=== PATIENT | female | born 1990 | race Caucasian/White ===

== ENCOUNTER → 2024-07-29 15:00 | Outpatient (REF) | payer OTHER, SELFPAY | LOC: HWRAD 15:00 | PROVIDERS: ATTENDING PHYSICIAN Nurse Practitioner Family | DX: R22.1 Localized swelling, mass and lump, neck (principal) | CPT/HCPCS: 76536 ==

== ENCOUNTER 2025-06-14 19:41 | Emergency (ER) | payer OTHER, SELFPAY ==
[2025-06-14 19:42] VITALS: BP 172/111
--- NOTE | 2025-06-14 20:21 | ED.GENMED ---
History of Present Illness
General
Chief Complaint: Throat Problem
Source: patient
Exam Limitations: none
Time Seen by Provider: 06/14/25 19:57
Nursing documentation reviewed up to this point in time: agreed with
History of Present Illness
History of Present Illness:
Patient is a healthy 34-year-old female who presents to the emergency department for evaluation of throat pain. She states that she developed a sore throat on Monday, was seen in urgent care where her rapid strep test was positive. She was
started on a course of amoxicillin. However, after 2 days she reports no improvement in throat pain and was seen by her primary care provider yesterday who switched her to Keflex and started her on a Medrol Dosepak.
Patient describes significant pain in her right throat now with right ear pain, as well. She has also had mild, intermittent headaches. Pain worse with swallowing. She denies any fever or chills. No chest pain, shortness of breath, or productive
cough. No vomiting. No abdominal pain.
Of note�patient's son was diagnosed with impetigo on Monday.
Review of Systems
Review of Systems
Allergies reviewed?: Yes
All Other Systems: ROS reviewed and negative except as documented in HPI and ROS
Phy Exam
Physical Exam
Physical Exam:
Vitals: Hypertensive, otherwise vital signs stable. Afebrile
General: Patient is mildly uncomfortable appearing, however nontoxic
Skin: Warm and dry, no rashes or lesions
Head: Normocephalic, atraumatic
Eyes: Sclera nonicteric.
Throat: Erythematous posterior pharynx with 1+ tonsillar edema and exudates greater on left side. Uvula midline. Clear speech. No trismus. Protecting airway
Neck: Normal ROM, no cervical spine tenderness, no meningismus. Palpable and tender cervical lymphadenopathy
Cardiac: Regular rate and rhythm, no murmurs.
Pulm: Normal respiratory effort. Lungs clear bilaterally
Abdomen: Abdomen soft and nontender.
Extremities: No evidence of cyanosis or edema
Neuro: AAOx3. Grossly intact.
Psychiatric: Normal affect.
Course
Orders/Labs/Results
Orders:
Orders
06/14/25 20:17
0.9% Sodium Chloride 1000 ml [Nss] 1,000 ml IV BOLUS
Dexamethasone Sod Phosphate [Decadron] 10 mg IV NOW STA
Ketorolac [Toradol] 15 mg IV NOW STA
06/14/25 20:18
Test Result ONCE
06/14/25 20:45
COVID-19 Antigen Urgent
Source: Nasal Swab
Complete Blood Count/With Diff Urgent
Comprehensive Metabolic Panel Urgent
HCG, Serum Qualitative Screen Urgent
Monotest Urgent
Influenza A+B Rapid Molecular Urgent
LESLEE Source: Nasal Swab
Specimen Description:
Rapid Strep Group A Urgent
LESLEE Source: Throat/Pharynx
Specimen Description:
Date Specimen was Collected: 06/14/25
Time Specimen was Collected: 20:28
Throat Culture [Throat Culture, Comprehensive] Urgent
LESLEE Source: Tonsil
Specimen Description:
Date Specimen was Collected: 06/14/25
Time Specimen was Collected: 20:28
06/14/25 21:27
Acetaminophen [Tylenol] 1,000 mg PO NOW STA
Abnormal Lab Results
06/14/25
20:45
WBC 16.1 H 10^3/uL
(4.8-10.8)
Abs Immat Gran (auto) 0.1 H 10^3/uL
(0-0.05)
Absolute Neuts (auto) 12.6 H 10^3/uL
(1.4-6.5)
Absolute Monos (auto) 1.2 H 10^3/uL
(0.1-0.6)
Neutrophils % 78.5 H %
(42.2-75.2)
Lymphocytes % 12.9 L %
(20.5-51.1)
Monoscreen Positive A
(Negative)
06/14/25 20:45
06/14/25 20:45
Vital Signs
Initial and Last Documented VS:
Initial Vital Signs
Temp Pulse Resp BP Pulse Ox
98.7 F 89 16 172/111 98
06/14/25 19:42 06/14/25 19:42 06/14/25 19:42 06/14/25 19:42 06/14/25 19:42
Last Documented Vital Signs
Temp Pulse Resp BP Pulse Ox
97.5 F 70 16 128/91 98
06/14/25 21:59 06/14/25 21:59 06/14/25 21:59 06/14/25 21:59 06/14/25 21:59
MDM/Problems Addressed
Differential Diagnosis Includes:
Not limited to: Strep pharyngitis, viral pharyngitis including COVID, influenza, mono, etc., peritonsillar abscess, otitis media, GERD, etc.
MDM/Problems Addressed:
34-year-old female with 3�4 days of sore throat and intermittent headaches. Apparently positive rapid strep test, however not responding to a few days of antibiotics.
Vitals stable. On exam, patient appears slightly uncomfortable when swallowing however non-toxic appearing. Abdomen benign. Cardio/pulmonary assessment unremarkable. Patient with tonsillar erythema and exudates on exam however no asymmetry or
evidence of ORDER DESK CLERK. Uvula midline with clear speech. No trismus.
Differential includes viral illness, bacterial pharyngitis, tonsiliths, ORDER DESK CLERK, etc
ED plan: labs, viral studies, rapid strep/culture. Will treat symptoms, give IV fluids and reassess.
Update: labs reveal leukocytosis which I suspect to be secondary to patient�s current steroid use. Monospot test is positive which would explain the majority of patients presenting symptoms. Rapid strep here is negative, culture pending. Otherwise
labs unremarkable.
Her vital signs were stable. Discussed mono, viral illness. Feel stable for discharge home with supportive care instructions and strict return precautions. She will f/u with PCP. Will send Decadron dose if symptoms persist/worse in two days.
Advised patient to continue antibiotics until throat culture returns.
All questions answered.
Chronic conditions affecting care:
N/A
Acute Exacerbation and/or Progression of Chronic Illness:
N/A
*Pulse Oximetry
SaO2: 98
Oxygen Mode of Delivery: Room air
Patient hypoxic: no
*EKG
Interpreted by ED Provider?: NA
*Expeller Operator Interpretation
Rate: Expeller Operator- N/A
*Critical Care Note
Total Time (30-74mins, 75-104mins- exclusive of procedures): Not Applicable
ED Attending Note
-
Portions of this chart may have been created with voice recognition software.� Occasional wrong word or��sound alike� substitutions may have occurred due to the inherent limitations of voice recognition software.
Discharge Plan
Departure
Patient Disposition: Home (Routine Discharge)
Date of Disposition: 06/14/25
Time of Disposition: 22:58
Patient with high blood pressure during this ER visit?: Yes
Condition: Good
Covid-19: Negative COVID-19
Discharge Problem:
Mononucleosis
Instructions: Mononucleosis (DC), BLOOD PRESSURE
Prescriptions:
New
dexamethasone 2 mg tablet
10 mg PO ONCE Qty: 5 0RF
diclofenac sodium 75 mg tablet,delayed release (DR/EC)
75 mg PO BID PRN (Reason: Sore throat) Qty: 10 0RF
Referrals:
Kacey Salter CRNP [Family Provider, Family Practice] - Follow up in 5-7 days
Stand Alone Forms: Return to Work
Activity Restrictions/Additional Instructions:
RETURN TO THE EMERGENCY DEPARTMENT WITH ANY FEVER, SEVERE HEADACHE OR NECK PAIN, DIFFICULTY BREATHING/INABILITY TO SWALLOW, PRODUCTIVE COUGH, ABDOMINAL PAIN, WORSENING IN CURRENT SYMPTOMS, OR ANY OTHER CONCERNS
- As discussed- your white blood cell count was elevated today in the emergency department. I suspect this is likely secondary to steroid use however you should ensure that this returns to normal with repeat lab work with your primary care provider.
- Your monotest was positive today in the emergency department. This is a viral illness. A prescription for diclofenac has been sent to your pharmacy which you can take twice a day as needed for pain. You cannot take this in addition to other
NSAIDs including Advil, Motrin, Aleve, etc. You can alternate with Tylenol for pain relief.
- You were given a dose of IV steroids today in the emergency department. This should last a few days. An additional dose of steroids been sent to your pharmacy which you can take in 2 days if sore throat persists and/or worsens. You should
discontinue the Medrol Dosepak.
-Please continue your antibiotic as prescribed until throat culture results have been received.
- Please stay well-hydrated.
- Follow-up with your primary care provider within a week for further evaluation/management to ensure that your symptoms are improving
Monitor your symptoms closely and return to the emergency department with any acute worsening/new symptoms or any other concerns
Interventions
Interventions:
*Risk Screen - Suicide Last Done: 06/14/25 19:42
*General Assessment Last Done: 06/14/25 21:56
*Neglect/Abuse Screening Last Done: 06/14/25 19:42
*ED- Fall Risk Assessment Last Done: 06/14/25 21:56
*ED COVID-19 Vaccine History Last Done: 06/14/25 21:56
*ED Influenza Vaccine History Last Done: 06/14/25 21:56
*Nursing Disposition Last Done: 06/14/25 23:53
ED-EENT Assessment Last Done: 06/14/25 21:55
ED- Pulmonary Assessment Last Done: 06/14/25 21:55
Discharge Date and Time
Discharge Date/Time: 06/14/25 23:54
Print Language: DIVEHI
[2025-06-14 20:56] LABS: Hematocrit 41.0 % (37.0-47.0); Hemoglobin 13.8 g/dL (12.0-16.0); Mean Corp Hgb Conc. 33.7 g/dL (33.0-37.0); Mean Corpuscular Volume 85.2 fL (81.0-99.0); Nucleated Red Blood Cells % 0 %; Platelet Count 313 10^3/uL (130-400); Red Cell Dist. Width 13.0 % (11.5-14.5)
[2025-06-14] MEDS: TORADOL 15 MG IV (21:03)
[2025-06-14] MEDS: NSS 1000 IV (21:04)
[2025-06-14] MEDS: DECADRON 10 MG IV (21:04)
[2025-06-14 21:11] LABS: HCG, Serum Qualitative Screen Negative
[2025-06-14 21:16] LABS: ALT (SGPT) 27 U/L (0-35); AST (SGOT) 29 U/L (14-36); Albumin 4.3 g/dl (3.5-5.0); Alkaline Phosphatase 82 U/L (38-126); Blood Urea Nitrogen 13 mg/dl (7-17); COVID-19 Antigen Negative (Negative); Calcium 9.6 mg/dl (8.4-10.2); Carbon Dioxide 22 mmol/L (22-30); Chloride 106 mmol/L (98-107); Glucose 96 mg/dl (70-99); Potassium 4.2 mmol/L (3.5-5.1); Sodium 137 mmol/L (135-145); Total Protein 7.4 g/dl (6.3-8.2); eGFR > 60.00
[2025-06-14] MEDS: TYLENOL 1000 MG PO (21:53)
[2025-06-14 21:59] VITALS: BP 128/91
== END 2025-06-14 23:54 | disposition home or self-care (01) ==
LOC: EMR 19:41
PROVIDERS: Physician Assistant; EMERGENCY PHYSICIAN Emergency Medicine; FAMILY PHYSICIAN Nurse Practitioner Family
DX: B27.90 Infectious mononucleosis, unspecified without complication (principal); Z11.52 Encounter for screening for COVID-19
CPT/HCPCS: 96374; 96375; 96361; 99284; 80053; 84703; 85025; 86308; 87070; 87502; 87811; 87880